=== PATIENT | female | born 1970 | race African-American/Black ===

== ENCOUNTER 2016-09-26 10:38 | Emergency (ER) | payer OTHER ==
[2016-09-26 10:50] LABS: BASOPHIL% 0.5 % (0-2.5); EOSINOPHIL# 0.2 X10e3 (0-0.7); EOSINOPHIL% 2.5 % (0.0-7.0); HEMATOCRIT 30.6 % (35.0-45.0); HEMOGLOBIN 9.7 gm/dL (12.0-16.0); LYMPHOCYTE# 3.7 X10e3 (1.0-3.5); LYMPHOCYTE% 52.8 % (17.0-45.0); MEAN CELL VOLUME 85.3 FL (83-96); MEAN CORPUSCULAR HGB CONC 31.7 g/dL (30-36); MEAN PLATELET VOLUME 9.3 FL (6.5-11.5); MONOCYTE# 0.4 X10e3 (0-1.0); MONOCYTE% 5.1 % (3.0-12.0); NEUTROPHIL# 2.8 X10e3 (1.5-7.1); NEUTROPHIL% 39.1 % (40-75); PLATELET COUNT 352 X10e3 (140-420); RED BLOOD COUNT 3.59 X10e (3.90-5.30); RED CELL DISTRIBUTION WIDTH 15.3 % (11.0-15.5); WHITE BLOOD COUNT 7.1 X10e3 (4.0-10.5)
[2016-09-26 10:53] LABS: DIFF IND YES
[2016-09-26 11:13] LABS: ANISOCYTOSIS SL; PLATELET ESTIMATE NORMAL (NORMAL)
[2016-09-26 11:34] LABS: BILIRUBIN, DIRECT 0.1 mg/dL (0.0-0.2); BILIRUBIN,INDIRECT 0.3 mg/dL (0.0-0.9); BILIRUBIN,TOTAL 0.4 mg/dL (0.2-2.0); BUN/CREATININE RATIO 17.14; CREATININE SERUM 0.7 mg/dL (0.6-1.4); GLOM FILT RATE Estimated 120.4 mL/min (>60); POTASSIUM 4.5 mmol/L (3.5-5.1); PROTEIN TOTAL SERUM 6.2 g/dL (6.0-8.3)
[2016-09-26 11:57] LABS: URINE SOURCE CLEAN CATCH
[2016-09-26 12:10] LABS: URINE APPEARANCE CLOUDY; URINE BILIRUBIN NEG (NEG); URINE BLOOD TRACE (NEG); URINE COLOR YELLOW; URINE GLUCOSE NEG (NEG); URINE KETONE NEG (NEG); URINE LEUKOCYTE ESTERASE TRACE (NEG); URINE NITRATE NEG (NEG); URINE PROTEIN NEG (NEG); URINE SPECIFIC GRAVITY 1.011 (1.003-1.035); URINE UROBILINOGEN 0.2 MG/DL (NEG)
[2016-09-26 12:12] LABS: CULTURE INDICATED? YES; URBCS1 AUWI 0-2 /[HPF] (0-2); URINE BACTERIA AUWI 1+ (NEGATIVE); URINE SQUAMOUS EPITHELIAL CELL FEW /[HPF]
[2016-09-26 12:20] LABS: U HYALINE CASTS AUWI 0-2 /[LPF]; URINE MUCUS PRESENT
== END 2016-09-26 13:00 | disposition home or self-care (01) ==
LOC: CED 10:38
PROVIDERS: Emergency Medicine
DX: K29.00 Acute gastritis without bleeding (principal); I10 Essential (primary) hypertension; Z88.2 Allergy status to sulfonamides
CPT/HCPCS: 36415; 80048; 80076; 81003; 82150; 82947; 83690; 84703; 85025; 87086; 96374; 99284; J2405

== ENCOUNTER → 2016-10-22 | Outpatient (CLI) | payer OTHER ==
--- NOTE | ~2016-10-22 | MY6 ---
[facility] A Service of [facility] / [facility] RADIOLOGY TEXT RESULTS PATIENT: ZOE MENDENHALL LOCATION: [facility] : 70 UNIT #: [id number] AGE: [address]: YNAG BEVERLY MD SEX: F ORDER DR: [id number] [facility] [address] [place], [place] [address] [id number] O MR#: [id number] Acc #: [id number] NAME: ZOE MENDENHALL : 1970 SEX: F STUDY DATE/TIME: 10/22/2016 15:28 UNIT: [facility] ROOM: STUDY DESCRIPTION: MY Mammogram Dx Dig Abraham Attending Physician: Yang Beverly M.D. Referring Physician: Yang Beverly M.D. Ordering Physician: Yang Beverly M.D. Primary Care Physician: Yang Beverly M.D. MEDICAL IMAGING REPORT This report is preliminary unless electronic signature is present EXAM Bilateral diagnostic mammogram. INDICATIONS Follow up right breast asymmetry. PROCEDURE Bilateral CC and MLO views. A spot compression view in the right breast CC projection. Images obtained on a digital mammography unit. An FDA-approved CAD device was utilized. COMPARISON STUDIES 10/21/2015 FINDINGS Scattered fibroglandular density. There is a 4 mm persistent asymmetry in the medial half of the right breast. It is not clearly seen on the MLO view. It is unchanged in size or appearance. Abnormality is not seen on an ultrasound from 11/06/2015. Ultrasound was not performed at this time. There is no new dominant mass or suspicious calcification. IMPRESSION 4 mm persistent asymmetry in the medial right breast is unchanged from 10/21/2015, and previously had no ultrasound correlate. It is most in keeping with benign finding. Recommend patient continue with yearly screening. Patients over the age of 40 are entered into a reminder system with target due date for the next mammogram. A result letter will also be sent to the patient. BIRADS: 2 Benign findings. [facility] A Service of [facility] / [facility] RADIOLOGY TEXT RESULTS PATIENT: ZOE MENDENHALL [id number] UNIT #: [id number] AGE: [address]: YANG BEVERLY MD SEX: F ORDER DR: Dictated by... Tobin Alicea M.D. THIS IS AN ELECTRONICALLY VERIFIED REPORT Tobin Alicea M.D. at 10/26/2016 7:22 AM CANDY/uday TD: 10/22/2016 21:50 JOB #: [id number] MEDICAL IMAGING REPORT Page 1 of 1 COPY
== END | disposition home or self-care (01) ==
LOC: CWCC 14:49
DX: N63 Unspecified lump in breast (principal); N64.89 Other specified disorders of breast
CPT/HCPCS: G0204